=== PATIENT | male | born 1985 | race Caucasian/White ===

== ENCOUNTER 2019-09-07 12:24 | Observation (INO) | payer OTHER ==
[2019-09-07 13:01] LABS: Absolute Lymphocytes (CBC) 1.8 K/uL (0.7-4.9); Basophils % 0.5 % (0-1.3); Lymphocytes % 33.3 % (15.3-44.8); MPV 8.5 fL (7.6-11.3); RBC Red Blood Cell Count 4.48 M/uL (4.33-5.43)
[2019-09-07] MEDS ORDERED: NA CHLORIDE 0.9% 1,000 ML ONE (13:17)
[2019-09-07] MEDS ORDERED: ONDANSETRON 4 MG/2 ML VIAL ONE (13:58)
[2019-09-07] MEDS ORDERED: MORPHINE 2 MG/ML SYR ONE (13:58)
[2019-09-07] MEDS ORDERED: FAMOTIDINE 20 MG/2 ML VIAL IV ONE (13:58)
[2019-09-07 14:08] LABS: Albumin 3.7 g/dL (3.4-5.0); Bilirubin Direct 0.2 mg/dL (0-0.2); Bilirubin Total 0.6 mg/dL (0.2-1.0); Potassium 3.2 mmol/L (3.5-5.1); Protein, Total 7.4 g/dL (6.4-8.2)
--- NOTE | 2019-09-07 14:52 | RAD REPORT ---
EXAM DESCRIPTION: CTAbdomen Pelvis W Contrast - 09/07/2019 2:27 pm CLINICAL HISTORY: Abdominal pain. ABD PAIN COMPARISON: CT ABD PELVIS W CONTRAST dated 03/22/2015 TECHNIQUE: Biphasic CT imaging of the abdomen and pelvis was performed with 100 ml non-ionic IV cont rast. All CT scans are performed using dose optimization technique as appropriate and may include automated exposure control or mA/KV adjustment according to patient size. FINDINGS: The lung bases are clear. The liver, spleen, pancreas, adrenal glands and kidneys are within normal limits. No bowel obstruction, free air, free fluid or abscess. Small fat containing umbilical hernia. Appende ctomy. Mild mesenteric edema is seen with small lymph nodes present. No evidence of significant lymph adenopathy. No suspicious bony findings. IMPRESSION: Mild mesenteric adenitis is possible.
--- NOTE | 2019-09-07 15:17 | EDPHYS ---
Physician Documentation [facility] Name: Aníbal Doyle Age: 33 yrs Sex: Male : 1985 Arrival Date: 09/07/2019 Time: 12:27 Bed 24 Private MD: ED Physician Lorne Redman HPI: 09/07 13:54 This 33 yrs old Male presents to ER via Ambulatory with complaints of leigha Abdominal Pain, Vomiting/Diarrhea. 13:54 The patient presents to the emergency department with nausea, vomiting, diarrhea, leigha abdominal pain, of the right upper quadrant. Onset: The symptoms/episode began/occurred 2 day(s) ago. Possible causes: unknown. The symptoms are aggravated by nothing. The symptoms are alleviated by nothing. Associated signs and symptoms: The patient has no apparent associated signs or symptoms. Severity of symptoms: At their worst the symptoms were mild moderate in the emergency department the symptoms are unchanged. The patient has not experienced similar symptoms in the past. 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 - Social history:: Smoking status: Patient/guardian denies using tobacco. - Ebola Screening: : Patient denies travel to an Ebola-affected area in the 21 days before illness onset. - Family history:: not pertinent. ROS: 13:54 Constitutional: Negative for fever, chills, and weight loss, Eyes: Negative for injury, leigha pain, redness, and discharge, ENT: Negative for injury, pain, and discharge, Neck: Negative for injury, pain, and swelling, Cardiovascular: Negative for chest pain, palpitations, and edema, Respiratory: Negative for shortness of breath, cough, wheezing, and pleuritic chest pain, Back: Negative for injury and pain, : Negative for injury, bleeding, discharge, and swelling, MS/Extremity: Negative for injury and deformity, Skin: Negative for injury, rash, and discoloration, Neuro: Negative for headache, weakness, numbness, tingling, and seizure. 13:54 Abdomen/GI: Positive for abdominal pain, nausea and vomiting, diarrhea, abdominal cramps, abdominal distension, of the right upper quadrant. Exam: 13:54 Constitutional: This is a well developed, well nourished patient who is awake, alert, leigha and in no acute distress. Head/Face: Normocephalic, atraumatic. Eyes: Pupils equal round and reactive to light, extra-ocular motions intact. Lids and lashes normal. Conjunctiva and sclera are non-icteric and not injected. Cornea within normal limits. Periorbital areas with no swelling, redness, or edema. ENT: Nares patent. No nasal discharge, no septal abnormalities noted. Tympanic membranes are normal and external auditory canals are clear. Oropharynx with no redness, swelling, or masses, exudates, or evidence of obstruction, uvula midline. Mucous membranes moist. Neck: Trachea midline, no thyromegaly or masses palpated, and no cervical lymphadenopathy. Supple, full range of motion without nuchal rigidity, or vertebral point tenderness. No Meningismus. Chest/axilla: Normal chest wall appearance and motion. Nontender with no deformity. No lesions are appreciated. Cardiovascular: Regular rate and rhythm with a normal S1 and S2. No gallops, murmurs, or rubs. Normal PMI, no JVD. No pulse deficits. Respiratory: Lungs have equal breath sounds bilaterally, clear to auscultation and percussion. No rales, rhonchi or wheezes noted. No increased work of breathing, no retractions or nasal flaring. Back: No spinal tenderness. No costovertebral tenderness. Full range of motion. Male : Normal genitalia with no discharge or lesions. Skin: Warm, dry with normal turgor. Normal color with no rashes, no lesions, and no evidence of cellulitis. MS/ Extremity: Pulses equal, no cyanosis. Neurovascular intact. Full, normal range of motion. Neuro: Awake and alert, GCS 15, oriented to person, place, time, and situation. Cranial nerves II-XII grossly intact. Motor strength 5/5 in all extremities. Sensory grossly intact. Cerebellar exam normal. Normal gait. Psych: Awake, alert, with orientation to person, place and time. Behavior, mood, and affect are within normal limits. 13:54 Abdomen/GI: Inspection: abdomen appears normal, Bowel sounds: normal, Palpation: mild abdominal tenderness, moderate abdominal tenderness, in the right upper quadrant and right lower quadrant. Vital Signs: 12:39 BP 131 / 99; Pulse 75; Resp 16; Temp 97.3; Pulse Ox 98% on R/A; Weight 90.72 kg (R); aj1 Height 6 ft. 1 in. (185.42 cm) (R); Pain 8/10; 13:41 BP 108 / 73; Pulse 63; Resp 16; Pulse Ox 99% on R/A; aj1 14:30 BP 117 / 75; Pulse 50; Resp 16; Pulse Ox 100% on R/A; aj1 15:30 BP 121 / 81; Pulse 45; Resp 20 S; Pulse Ox 99% on R/A; aj1 16:30 BP 109 / 77; Pulse 40; Resp 16; Pulse Ox 98% on R/A; aj1 17:30 BP 104 / 75; Pulse 45; Resp 18; Pulse Ox 99% on R/A; aj1 18:30 BP 110 / 86; Pulse 43; Resp 18; Pulse Ox 97% on R/A; aj1 19:10 BP 98 / 66; Pulse 41; Resp 14; Temp 98.6(O); Pulse Ox 99% on R/A; Pain 6/10; ch 12:39 Body Mass Index 26.39 (90.72 kg, 185.42 cm) aj1 MDM: 12:37 Patient medically screened. [facility] 13:58 Data reviewed: vital signs, nurses notes, lab test result(s), EKG, radiologic studies, leigha doppler, plain films. 09/07 12:35 Order name: Basic Metabolic Panel; Complete Time: 15:09 [facility] 09/07 12:35 Order name: CBC with Diff; Complete Time: 13:52 [facility] 09/07 12:35 Order name: Creatinine for Radiology; Complete Time: 13:52 [facility] 09/07 12:35 Order name: Hepatic Function; Complete Time: 15:09 [facility] 09/07 12:35 Order name: Lipase; Complete Time: 15:09 [facility] 09/07 12:35 Order name: Urine Culture [facility] 09/07 12:37 Order name: Stool Culture [facility] 09/07 12:37 Order name: Fecal Leukocyte Stain [facility] 09/07 13:54 Order name: US Abdomen Limited; Complete Time: 15:54 [facility] 09/07 13:56 Order name: Urine Dipstick--Ancillary (enter results); Complete Time: 15:54 09/07 16:48 Order name: Magnesium [facility] 09/07 16:48 Order name: NT PRO-BNP [facility] 09/07 16:48 Order name: PT-INR [facility] 09/07 16:48 Order name: Troponin (emerg Dept Use Only) [facility] 09/07 12:35 Order name: IV Saline Lock; Complete Time: 12:44 [facility] 09/07 12:35 Order name: Labs collected and sent; Complete Time: 12:44 [facility] 09/07 12:35 Order name: Urine Dipstick-Ancillary (obtain specimen); Complete Time: 13:27 [facility] 09/07 13:54 Order name: CT Abd/Pelvis - IV Contrast Only; Complete Time: 15:09 [facility] 09/07 15:20 Order name: Hepatobiliary System W/ Ph [facility] 09/07 16:05 Order name: EKG Electrocardiogram; Complete Time: 16:08 [facility] 09/07 16:48 Order name: XRAY Chest (1 view) [facility] 09/07 16:48 Order name: Cardiac monitoring; Complete Time: 16:48 [facility] 09/07 16:48 Order name: EKG - Nurse/Tech; Complete Time: 16:49 [facility] 09/07 16:48 Order name: O2 Per Protocol; Complete Time: 16:49 [facility] 09/07 16:48 Order name: O2 Sat Monitoring; Complete Time: 16:49 [facility] Administered Medications: 13:28 Drug: NS 0.9% 1000 ml Route: IV; Rate: 1 bolus; Site: right antecubital; aj1 14:02 Drug: morphine 2 mg {Note: RASS score 0, patient is alert .} Route: IVP; Site: right aj1 antecubital; 14:02 Drug: Zofran 4 mg Route: IVP; Site: right antecubital; aj1 14:02 Drug: Pepcid 20 mg Route: IVP; Site: right antecubital; aj1 19:00 Follow up: Response: No adverse reaction 15:43 Drug: NS 0.9% with KCl 20 mEq/L 1000 ml Route: IV; Rate: 125 ml/hr; Site: right aj1 antecubital; 21:00 Follow up: IV Status: Infusion continued upon admission; IV Intake: 300ml ch Disposition: 09/07/19 15:16 Hospitalization ordered by Nik You for Inpatient Admission. Preliminary diagnosis are Abdominal tenderness, Vomiting, Hypokalemia, Bradycardia, unspecified. - Bed requested for Telemetry/MedSurg (Inpatient). - Status is Inpatient Admission. - Condition is Fair. - Problem is new. - Symptoms have improved. UTI on Admission? No Signatures: Dispatcher [employer] EDMS Josephine Jackson Kandice Trotter RN RN ch Johnson, Angela, RN RN ajLorne Chambers MD MD cha Corrections: (The following items were deleted from the chart) 15:20 15:16 Hospitalization Ordered by Nik Doan for Inpatient Admission. Preliminary [facility] diagnosis is Abdominal tenderness; Vomiting. Bed requested for Telemetry/MedSurg (Inpatient). Status is Inpatient Admission. Condition is Fair. Problem is new. Symptoms have improved. UTI on Admission? No. [facility] 15:57 15:20 09/07/2019 15:16 [facility] leigha Ad[facility]. Preliminary diagnosis is Abdominal tenderness; Vomiting; Hypokalemia. Bed requested for Telemetry/MedSurg (Inpatient). Status is Inpatient Admission. Condition is Fair. Problem is new. Symptoms have improved. UTI on Admission? No. [facility] 18:29 15:57 09/07/2019 15:16 Hospitalization Ordered by [facility] for Inpatient bd Admission. Preliminary diagnosis is Abdominal tenderness; Vomiting; Hypokalemia; Bradycardia, unspecified. Bed requested for Telemetry/MedSurg (Inpatient). Status is Inpatient Admission. Condition is Fair. Problem is new. Symptoms have improved. UTI on Admission? No. [facility] 20:17 18:29 09/07/2019 15:16 Hospitalization Or[facility] by [facility] for [facility]patient ch Admission. Preliminary diagnosis is Abdominal tenderness; Vomiting; Hypokalemia; Bradycardia, unspecified. Bed requested for Telemetry/MedSurg (Inpatient). Status is Inpatient Admission. Condition is Fair. Problem is new. Symptoms have improved. UTI on Admission? No.
--- NOTE | 2019-09-07 15:17 | ER ---
Nurse's Notes [facility] Name: Aníbal Doyle Age: 33 yrs Sex: Male : 1985 Arrival Date: 09/07/2019 Time: 12:27 Bed 24 Private MD: Diagnosis: Abdominal tenderness;Vomiting;Hypokalemia;Bradycardia, unspecified Presentation: 09/07 12:38 Presenting complaint: Patient states: Right sided abdominal pain, N/V/D, and low grade aj1 fever. Transition of care: patient was not received from another setting of care. Onset of symptoms was September 07, 2019. Risk Assessment: Do you want to hurt yourself or someone else? Patient reports no desire to harm self or others. Initial Sepsis Screen: Does the patient meet any 2 criteria? No. Patient's initial sepsis screen is negative. Does the patient have a suspected source of infection? Yes: Acute abdominal pain. Care prior to arrival: None. 12:38 Method Of Arrival: Ambulatory aj 12:38 Acuity: MINDY 3 aj1 Triage Assessment: 12:39 General: Appears in no apparent distress. uncomfortable, Behavior is calm, cooperative, aj1 appropriate for age. Pain: Complains of pain in umbilical area and right lower quadrant. GI: Reports lower abdominal pain, diarrhea, nausea, vomiting. 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 - Social history:: Smoking status: Patient/guardian denies using tobacco. - Ebola Screening: : Patient denies travel to an Ebola-affected area in the 21 days before illness onset. - Family history:: not pertinent. Screenin:41 Abuse screen: Denies threats or abuse. Denies injuries from another. Nutritional aj1 screening: No deficits noted. Tuberculosis screening: No symptoms or risk factors identified. 19:10 Fall Risk None identified. ch Assessment: 12:41 General: Appears in no apparent distress. uncomfortable, Behavior is calm, cooperative, aj1 appropriate for age. Pain: Complains of pain in right lower quadrant and umbilical area Pain radiates to back Pain currently is 8 out of 10 on a pain scale. Neuro: Level of Consciousness is awake, alert, obeys commands, Oriented to person, place, time, situation. Cardiovascular: Patient's skin is warm and dry. Respiratory: Airway is patent Respiratory effort is even, unlabored, Respiratory pattern is regular, symmetrical. GI: Abdomen is round non-distended, Bowel sounds present X 4 quads. Abd is soft and non tender X 4 quads. Reports lower abdominal pain, diarrhea, nausea, vomiting. : No signs and/or symptoms were reported regarding the genitourinary system. EENT: No signs and/or symptoms were reported regarding the EENT system. Derm: No signs and/or symptoms reported regarding the dermatologic system. Skin is pink, warm \T\ dry. normal. Musculoskeletal: No signs and/or symptoms reported regarding the musculoskeletal system. Circulation, motion, and sensation intact. 13:37 Reassessment: Patient appears in no apparent distress at this time. No changes from aj1 previously documented assessment. Patient and/or family updated on plan of care and expected duration. Pain level reassessed. Patient is alert, oriented x 3, equal unlabored respirations, skin warm/dry/pink. 14:30 Reassessment: Patient and/or family updated on plan of care and expected duration. Pain aj1 level reassessed. General: Appears in no apparent distress. comfortable, Behavior is calm, cooperative, appropriate for age. Neuro: Level of Consciousness is awake, alert, obeys commands, Oriented to person, place, time, situation. Cardiovascular: Patient's skin is warm and dry. Respiratory: Airway is patent Respiratory effort is even, unlabored, Respiratory pattern is regular, symmetrical. Derm: Skin is pink, warm \T\ dry. normal. Musculoskeletal: Circulation, motion, and sensation intact. 15:39 Reassessment: Patient's heart rate is sustained in the 40's at this time. Notified Dr. oneida Redman. Patient states that he is unsure what his normal resting heart rate is. 15:40 Reassessment: Patient and/or family updated on plan of care and expected duration. Pain aj1 level reassessed. General: Appears in no apparent distress. comfortable, Behavior is calm, cooperative, appropriate for age. Neuro: Level of Consciousness is awake, alert, obeys commands, Oriented to person, place, time, situation. Cardiovascular: Patient's skin is warm and dry. Rhythm is sinus bradycardia. Respiratory: Airway is patent Respiratory effort is even, unlabored, Respiratory pattern is regular, symmetrical. 16:30 Reassessment: Patient appears in no apparent distress at this time. No changes from aj1 previously documented assessment. Patient and/or family updated on plan of care and expected duration. Pain level reassessed. Patient is alert, oriented x 3, equal unlabored respirations, skin warm/dry/pink. 17:30 Reassessment: Patient appears in no apparent distress at this time. No changes from aj1 previously documented assessment. Patient and/or family updated on plan of care and expected duration. Pain level reassessed. Patient is alert, oriented x 3, equal unlabored respirations, skin warm/dry/pink. 18:30 Reassessment: Patient and/or family updated on plan of care and expected duration. Pain aj1 level reassessed. General: Appears in no apparent distress. comfortable, Behavior is calm, cooperative, appropriate for age. Neuro: Level of Consciousness is awake, alert, obeys commands, Oriented to person, place, time, situation. Cardiovascular: Patient's skin is warm and dry. Respiratory: Airway is patent Respiratory effort is even, unlabored, Respiratory pattern is regular, symmetrical. GI: Abdomen is round non-distended. Derm: Skin is pale. Musculoskeletal: No signs and/or symptoms reported regarding the musculoskeletal system. Circulation, motion, and sensation intact. 19:10 Reassessment: Patient appears in no apparent distress at this time. Patient and/or ch family updated on plan of care and expected duration. Pain level reassessed. Patient is alert, oriented x 3, equal unlabored respirations, skin warm/dry/pink. Neuro: No deficits noted. Respiratory: No deficits noted. Breath sounds are clear bilaterally. GI: Abdomen is round non-distended, Bowel sounds present X 4 quads. Abd is soft X 4 quads Abdomen is tender to palpation in right upper quadrant, left upper quadrant and right lower quadrant Reports lower abdominal pain, diarrhea, nausea, vomiting. : No signs and/or symptoms were reported regarding the genitourinary system. Derm: Skin is intact, Skin is pink, warm \T\ dry. normal. Vital Signs: 12:39 BP 131 / 99; Pulse 75; Resp 16; Temp 97.3; Pulse Ox 98% on R/A; Weight 90.72 kg (R); aj1 Height 6 ft. 1 in. (185.42 cm) (R); Pain 8/10; 13:41 BP 108 / 73; Pulse 63; Resp 16; Pulse Ox 99% on R/A; aj1 14:30 BP 117 / 75; Pulse 50; Resp 16; Pulse Ox 100% on R/A; aj1 15:30 BP 121 / 81; Pulse 45; Resp 20 S; Pulse Ox 99% on R/A; aj1 16:30 BP 109 / 77; Pulse 40; Resp 16; Pulse Ox 98% on R/A; aj1 17:30 BP 104 / 75; Pulse 45; Resp 18; Pulse Ox 99% on R/A; aj1 18:30 BP 110 / 86; Pulse 43; Resp 18; Pulse Ox 97% on R/A; aj1 19:10 BP 98 / 66; Pulse 41; Resp 14; Temp 98.6(O); Pulse Ox 99% on R/A; Pain 6/10; ch 12:39 Body Mass Index 26.39 (90.72 kg, 185.42 cm) aj1 ED Course: 12:27 Patient arrived in ED. mr 12:35 Lorne Redman MD is Attending Physician. leigha 12:38 Sheyla Rodriguez, RN is Primary Nurse. aj1 12:39 Triage completed. aj1 12:39 Arm band placed on. aj1 12:41 Patient has correct armband on for positive identification. Bed in low position. Call aj1 light in reach. 12:41 No provider procedures requiring assistance completed. aj1 12:44 Initial lab(s) drawn, by fl, sent to lab. Inserted saline lock: 20 gauge in right ca1 antecubital area, using aseptic technique. Blood collected. 13:27 Urine Culture Sent. jp3 13:28 Urine collected: clean catch specimen, clear, roldan colored. jp3 14:28 CT Abd/Pelvis - IV Contrast Only In Process Unspecified. EDMS 15:05 US Abdomen Limited In Process Unspecified. EDMS 15:13 Nik You is Hospitalizing Provider. leigha 16:00 EKG done, by flight test data acquisition technician. reviewed by Lorne Redman MD. sm3 17:03 XRAY Chest (1 view) In Process Unspecified. EDMS 17:26 Initial lab(s) drawn, by fl, sent to lab. jp3 17:26 Troponin (emerg Dept Use Only) Sent. jp3 17:26 Magnesium Sent. jp3 17:26 NT PRO-BNP Sent. jp3 17:26 PT-INR Sent. jp3 19:10 No apparent distress. Resting quietly. 19:10 quality assurance monitor final on. Pulse ox on. NIBP on. Warm blanket given. 19:10 Patient admitted, IV remains in place. 19:44 Primary Nurse role handed off by Sheyla oRdriguez, MILDRED 19:44 Kandice Trotter, RN is Primary Nurse. Administered Medications: 13:28 Drug: NS 0.9% 1000 ml Route: IV; Rate: 1 bolus; Site: right antecubital; [facility] 14:02 Drug: morphine 2 mg {Note: RASS score 0, patient is alert .} Route: IVP; Site: right [facility] antecubital; 14:02 Drug: Zofran 4 mg Route: IVP; Site: right antecubital; [facility] 14:02 Drug: Pepcid 20 mg Route: IVP; Site: right antecubital; [facility] 19:00 Follow up: Response: No adverse reaction 15:43 Drug: NS 0.9% with KCl 20 mEq/L 1000 ml Route: IV; Rate: 125 ml/hr; Site: right [facility] antecubital; 21:00 Follow up: IV Status: Infusion continued upon admission; IV Intake: 300ml Intake: 21:00 IV: 300ml; Total: 300ml. Outcome: 15:16 Decision to Hospitalize by Provider. [facility] 19:47 Admitted to Med/surg accompanied by nurse, via wheelchair, room 416, with chart, Report called to Leticia 19:47 Condition: stable 19:47 Instructed on the need for admit. 20:17 Patient left the ED. Signatures: Dispatcher [employer] EDMS Kandice Trotter, RN RN Sheyla Peña, MILDRED RN aj1 Lorne Redman MD MD cha Rivera, Tonie mr Ohara, Julissa [email or web address] Junior Haynes jp3 Ary Choe RN RN ca1
--- NOTE | 2019-09-07 15:23 | RAD REPORT ---
EXAM DESCRIPTION: US - Abdomen Exam Limited - 09/07/2019 3:04 pm CLINICAL HISTORY: ABD PAIN COMPARISON: Abdomen Pelvis W Contrast dated 09/07/2019 FINDINGS: No gallstones, sludge or other abnormalities within the gallbladder lumen. There is no wal l thickening or pericholecystic fluid. No common duct stone or biliary tree dilatation identified. IMPRESSION: Normal gallbladder and biliary tree ultrasound.
[2019-09-07] MEDS ORDERED: NS KCL 20MEQ 1,000 ML IV ONE (15:32)
[2019-09-07 15:48] LABS: Urine Blood NEGATIVE (NEG); Urine Glucose NEGATIVE (NEG); Urine Protein NEGATIVE (NEG); Urine Specific Gravity 1.015 (1.005-1.030)
--- NOTE | 2019-09-07 17:08 | EKG ---
Test Date: 2019-09-07 Test Time: 15:48:45 Cigarette Catcher: SILVERIO MEASUREMENT RESULTS: Intervals: Rate: 43 NC: 210 QRSD: 132 QT: 496 QTc: 419 [place]: P: 51 NC: 210 QRS: 104 T: 46 INTERPRETIVE STATEMENTS: Sinus rhythm with 1st degree AV block with blocked premature atrial complexes Rightward axis Nonspecific intraventricular block Cannot rule out Septal infarct, age undetermined Abnormal ECG Compared to ECG 04/21/2015 10:12:46 Atrial premature complex(es) now present First degree AV block now present Right-axis deviation now present Myocardial infarct finding still present Electronically Signed On 09-07-19 17:08:11 CDT by Stevo Rossi
[2019-09-07 17:51] LABS: Protime INR 0.96
--- NOTE | 2019-09-07 17:58 | P.HP ---
Certification for Inpatient Patient admitted to: Observation With expected LOS: <2 Midnights Practitioner: I am a practitioner with admitting privileges, knowledge of patient current condition, hospital course, and medical plan of care. Services: Services provided to patient in accordance with Admission requirements found in Title 42 Section 412.3 of the Code of Federal Regulations Patient History Date of Service: 09/07/19 Reason for admission: Abdominal pain History of Present Illness: 33-year-old gentleman with a history of myotonic dystrophy presented emergency department with a complaint of intermittent abdominal pain that has been present for a few years. He stated the pain was occurring once or twice every week but over the past 4 months has been more frequent. He mentioned he saw Dr. mascorro a few years ago who had his gallbladder checked and was told it was normal. Patient described generalized abdominal pain, worse in the right upper quadrant, no associated nausea or vomiting or diarrhea. He has also been afebrile. In the ED, CT abdomen and pelvis was unremarkable except findings suggestive of mild mesenteric adenitis. There is no gallstones or evidence of acute cholecystitis. Case was discussed with Dr. Sheffield recommended hospitalization for HIDA scan. Patient is placed under observation for further management. Allergies No Known Drug Allergies Allergy (Unverified 03/22/15 14:14) Unknown Home medications list reviewed: Yes (None) - Past Medical/Surgical History Diabetic: No -: Myotonic dystrophy Past Surgical History: Patient denies surgical history - Family History Father -: Cancer (Skin cancer) - Social History Alcohol use: Yes CD- Drugs: No Place of Residence: Home Review of Systems Other: General: No fever, no malaise, no unintentional weight loss. Eyes: No eye discharge, Respiratory: No cough, no shortness of breath. CVS: No chest pain, no palpitation, no lightheadedness. GI: No nausea, no vomit, no constipation, no diarrhea. Genitourinary: No dysuria, no urinary frequency, no incontinence, no hematuria. Musculoskeletal: No joint pains, or joint swelling, no gait instability. Neurology: No headache, no asymmetric, weakness, no problem with swallowing. Except as documented, all other systems reviewed and negative. Physical Examination - Physical Exam General: Alert, In no apparent distress, Oriented x3 HEENT: Normocephalic, PERRLA, Mucous membr. moist/pink Neck: Supple, JVD not distended, No Thyromegaly Respiratory: Clear to auscultation bilaterally, Normal air movement Cardiovascular: No edema, Normal S1 S2, No murmurs, Other (Bradycardic) Gastrointestinal: Normal bowel sounds, Soft and benign, Non-distended, Tenderness (Mild tenderness in the right upper quadrant.) Musculoskeletal: No clubbing, No swelling Integumentary: No rashes, No breakdown Neurological: Normal strength at 5/5 x4 extr, Cranial nerves 3-12 intact, Normal affect Lymphatics: No axilla or inguinal lymphadenopathy - Studies Laboratory Data (last 24 hrs) 09/07/19 12:43: Creatinine 1.16 09/07/19 12:43: WBC 5.3, Hgb 14.3, Hct 41.0, Plt Count 216 09/07/19 12:43: Sodium 146 H, Potassium 3.2 L, BUN 12, Creatinine 1.18, Glucose 103, Total Bilirubin 0.6, AST 81 H, ALT 136 H, Alkaline Phosphatase 118 H, Lipase 140 Imagings Data: CT abdomen and pelvis: The liver, spleen, pancreas, adrenal glands and kidneys are within normal limits. No bowel obstruction, free air, free fluid or abscess. Small fat containing umbilical hernia. Appendectomy. Mild mesenteric edema is seen with small lymph nodes present. No evidence of significant lymphadenopathy. No suspicious bony findings. IMPRESSION: Mild mesenteric adenitis is possible Abdominal ultrasound: Normal gallbladder and biliary tree ultrasound. Assessment and Plan - Problems (Diagnosis) (1) Abdominal pain Current Visit: Yes Status: Acute (2) Elevated LFTs Current Visit: Yes Status: Acute (3) Myotonic dystrophy Current Visit: Yes Status: Acute (4) Bradycardia Current Visit: Yes Status: Acute - Plan Placed under observation IV hydration with normal Saline IV morphine p.r.n. for pain. HIDA scan as recommended by general surgeon Consult to Dr. Sosa. Consult to Dr. Andrew to evaluate. Monitor LFTs. - Advance Directives Does patient have a Living Will: No Does patient have a Durable POA for Healthcare: No
--- NOTE | 2019-09-07 18:04 | RAD REPORT ---
EXAM DESCRIPTION: RAD - Chest Single View - 09/07/2019 5:02 pm CLINICAL HISTORY: Right-sided chest and abdomen pain COMPARISON: March 2015 TECHNIQUE: AP portable chest image was obtained 1659 hours . FINDINGS: Lungs are clear. Heart and vasculature are normal. No measurable pleural effusion and no p neumothorax. No acute bony abnormality seen. No acute aortic findings suspected. IMPRESSION: No acute cardiopulmonary process.
[2019-09-07 18:34] LABS: Magnesium 2.2 mg/dL (1.8-2.4); NT PRO-BNP 67 pg/mL (<125); Troponin (Emerg Dept Use Only) < 0.02 ng/mL (0.0-0.045)
[2019-09-07] MEDS ORDERED: MAGNESIUM HYDROXIDE 8% 30 ML PO PRN (19:10)
[2019-09-07] MEDS ORDERED: ACETAMINOPHEN 500 MG TAB PO PRN (19:10)
[2019-09-07] MEDS ORDERED: ONDANSETRON 4 MG/2 ML VIAL IV PRN (19:10)
[2019-09-07] MEDS: NA CHLORIDE 0.9% 1,000 ML IV SCH (19:10)
[2019-09-07] MEDS: MORPHINE 2 MG/ML SYR IV PRN (19:13)
--- NOTE | 2019-09-07 21:18 | P.CNS ---
Date of Consult: 09/07/19 PC: I was asked to see this patient regards to his abdominal pain. HPC: This is a 33-year-old male, who presents with severe abdominal pain. Located on the right side of his abdomen. States it also radiates to his back, between the shoulders, and up to is right shoulder blade. Patient has had abdominal pain off and on for the last number of years. Says he attacks are becoming more frequent. Associated with nausea. Says his pain is now constant. PMH: Myotonic dystrophy PSHx: Previous appendectomy SOC: No known allergies SYS REVIEW: No cough, wheeze, shortness of breath. States his weight has been stable. However he has trouble swallowing. No urinary complaints. Has some muscle spasticity particularly relaxing i.e. his j2ee consultant etc O/E awake alert comfortable at the moment vital signs are stable HEENT: He is not jaundiced Chest: Air entry is equal bilaterally ABD: Soft nontender no guarding or rebound LOCO: Intact DATA: The CT scan demonstrates possible mesenteric adenitis per report. Ultrasound was negative. IMPRESSION: Abdominal pain PLAN: The patient has been admitted for observation pain control. He has a HIDA scan ordered in the morning. We will wait for the results of this. He does not have an acute surgical abdomen at the moment
[2019-09-07 22:06] VITALS: BMI 28.5
[2019-09-08 06:00] LABS: Albumin 3.4 g/dL (3.4-5.0); Bilirubin Total 0.6 mg/dL (0.2-1.0); Magnesium 2.1 mg/dL (1.8-2.4); Phosphorus 3.5 mg/dL (2.5-4.9); Potassium 4.1 mmol/L (3.5-5.1); Protein, Total 6.4 g/dL (6.4-8.2)
[2019-09-08] MEDS ORDERED: INFLUENZA VACCINE (for 3y+) 0.5 ML DOSE IMVAC ONE (08:00)
--- NOTE | 2019-09-08 08:47 | RAD REPORT ---
EXAM DESCRIPTION: NM - Hepatobiliary System W/ Ph - 09/08/2019 7:43 am CLINICAL HISTORY: abd pain COMPARISON: No comparisons TECHNIQUE: The patient was administered 6.1 mCi Tc99m Choletec. Imaging of the right upper quadrant was performed initially for up to 60 minutes. Gallbladder ejection fraction determination was then performed utilizing synthetic 1.7 mgm CCK over a slow 30 minute infusion. FINDINGS: Normal hepatic uptake and excretion with appropriate clearance of background blood pool ac tivity. Normal visualization of biliary and small bowel activity. Gallbladder visualizes within normal time limits. The calculated ejection fraction is 22% (normal gre ater than 35%). Subjective pain reported by the patient: Pre-procedure - no symptom During or subsequent to synthetic CCK infusion - no symptoms IMPRESSION: Patient cystic duct and patent sphincter of Oddi. No delay in visualization of the gallb ladder, biliary tree, or duodenum. Ejection fraction is 22% (normal greater than 35%). Subjective patient pain assessment as detailed above.
[2019-09-08] MEDS: NA CHLORIDE 0.9% 1,000 ML IV SCH ×2 (09:22→15:10)
--- NOTE | 2019-09-08 15:11 | P.PN ---
Subjective Date of Service: 09/08/19 Chief Complaint: Abdominal pain Subjective: No new changes (Patient report intermittent abdominal pain.) Physical Examination - Vital Signs Temperature: 97.5 F Blood Pressure: 110/62 Pulse: 60 Respirations: 16 Pulse Ox (%): 99 - Physical Exam General: Alert, In no apparent distress, Oriented x3 HEENT: Mucous membr. moist/pink Neck: Supple, No Thyromegaly Respiratory: Clear to auscultation bilaterally, Normal air movement Cardiovascular: No edema, Normal pulses, Regular rate/rhythm, Normal S1 S2, No murmurs Capillary refill: <2 Seconds Gastrointestinal: Normal bowel sounds, Soft and benign, Non-distended, No tenderness Musculoskeletal: No clubbing, No swelling Integumentary: No rashes Neurological: Normal strength at 5/5 x4 extr, Cranial nerves 3-12 intact - Studies Laboratory Data (last 24 hrs) 09/07/19 16:53: PT 11.4, INR 0.96 09/07/19 16:53: Magnesium 2.2 Assessment And Plan - Current Problems (Diagnosis) (1) Abdominal pain Current Visit: Yes Status: Acute (2) Elevated LFTs Current Visit: Yes Status: Acute (3) Myotonic dystrophy Current Visit: Yes Status: Acute (4) Bradycardia Current Visit: Yes Status: Acute - Plan LFT is trending down. Continue IV hydration with normal Saline IV morphine p.r.n. for pain. HIDA scan suggests reduced gallbladder ejection fraction but no acute cholecystitis Patient seen by Dr. Sosa and he is following Consult to Dr. Andrew is pending. Monitor LFTs.
[2019-09-08 21:21] VITALS: O2SAT 95
[2019-09-08] MEDS: MORPHINE 2 MG/ML SYR IV PRN ×2 (22:58)
[2019-09-09] MEDS: NA CHLORIDE 0.9% 1,000 ML IV SCH ×2 (01:10→05:16)
[2019-09-09 04:58] LABS: ALT/SGPT 105 U/L (12-78); AST/SGOT 58 U/L (15-37); Albumin 3.5 g/dL (3.4-5.0); Alkaline Phosphatase 93 U/L (45-117); BUN Blood Urea Nitrogen 10 mg/dL (7-18); Bicarbonate 27 mmol/L (21-32); Bilirubin Total 0.8 mg/dL (0.2-1.0); Glucose Level 69 mg/dL (74-106); Magnesium 1.9 mg/dL (1.8-2.4); Potassium 3.9 mmol/L (3.5-5.1); Protein, Total 6.6 g/dL (6.4-8.2); Sodium Level 146 mmol/L (136-145)
[2019-09-09] MEDS: MORPHINE 2 MG/ML SYR IV PRN ×2 (05:16→09:14)
[2019-09-09] MEDS ORDERED: KCL 20 MEQ/100 mL IVPB 20 MEQ/100 ML BAG IV SCH (07:00)
--- NOTE | 2019-09-09 11:53 | P.DS ---
Admission Date: 09/07/19 Discharge Date: 09/09/19 Disposition: ROUTINE DISCHARGE Discharge Condition: GOOD Reason for Admission: Abdominal pain Consultations: General Surgery-Dr. Sosa - Problems (1) Abdominal pain Current Visit: Yes Status: Acute (2) Elevated LFTs Current Visit: Yes Status: Acute (3) Myotonic dystrophy Current Visit: Yes Status: Acute (4) Bradycardia Current Visit: Yes Status: Acute Brief History of Present Illness: 33-year-old gentleman with a history of myotonic dystrophy presented emergency department with a complaint of intermittent abdominal pain that has been present for a few years. He stated the pain was occurring once or twice every week but over the past 4 months has been more frequent. He mentioned he saw Dr. Andrew a few years ago who had his gallbladder checked and was told it was normal. Patient described generalized abdominal pain, worse in the right upper quadrant, no associated nausea or vomiting or diarrhea. He has also been afebrile. In the ED, CT abdomen and pelvis was unremarkable except findings suggestive of mild mesenteric adenitis. There was no gallstones or evidence of acute cholecystitis. Case was discussed with Dr. Sheffield who recommended hospitalization for HIDA scan. Patient was placed under observation for further management. Hospital Course: Patient treated supportively with IV fluids. Patient was evaluated by general surgery-Dr. Sosa. HIDA scan performed did not suggest acute cholecystitis. He did report some mildly reduced gallbladder ejection fraction. His liver enzymes were midly elevated. This trended down with IV hydration. The patient reports no abdominal pain today. He has tolerated regular diet. He reports occasional diarrhea, no nausea or vomiting. Patient is discharged to follow with Dr. Andrew ulcer outpatient regarding his intractable abdominal pain. He is prescribed Protonix for possible gastritis. Vital Signs/Physical Exam: Temp Pulse Resp BP Pulse Ox 97.4 F 60 18 110/66 95 09/09/19 08:00 09/09/19 08:00 09/09/19 10:29 09/09/19 08:00 09/09/19 10:29 General: Alert, In no apparent distress, Oriented x3 HEENT: Mucous membr. moist/pink Neck: Supple, JVD not distended Respiratory: Clear to auscultation bilaterally, Normal air movement Cardiovascular: No edema, Normal pulses, Regular rate/rhythm, Normal S1 S2, No murmurs Capillary refill: <2 Seconds Gastrointestinal: Normal bowel sounds, Soft and benign, Non-distended, No tenderness Musculoskeletal: No swelling Integumentary: No rashes Laboratory Data at Discharge: WBC 5.3 K/uL (4.3-10.9) 09/07/19 12:43 Hgb 14.3 g/dL (13.6-17.9) 09/07/19 12:43 Hct 41.0 % (39.6-49.0) 09/07/19 12:43 Plt Count 216 K/uL (152-406) 09/07/19 12:43 PT 11.4 SECONDS (9.5-12.5) 09/07/19 16:53 INR 0.96 09/07/19 16:53 Sodium 146 mmol/L (136-145) H 09/09/19 03:43 Potassium 3.9 mmol/L (3.5-5.1) 09/09/19 03:43 BUN 10 mg/dL (7-18) 09/09/19 03:43 Creatinine 0.94 mg/dL (0.55-1.3) 09/09/19 03:43 Glucose 69 mg/dL (74-106) L 09/09/19 03:43 Phosphorus 3.5 mg/dL (2.5-4.9) 09/08/19 05:19 Magnesium 1.9 mg/dL (1.8-2.4) 09/09/19 03:43 Total Bilirubin 0.8 mg/dL (0.2-1.0) 09/09/19 03:43 AST 58 U/L (15-37) H 09/09/19 03:43 ALT 105 U/L (12-78) H 09/09/19 03:43 Alkaline Phosphatase 93 U/L (45-117) 09/09/19 03:43 Lipase 140 U/L (73-393) 09/07/19 12:43 Imagings Data: HIDA scan: Normal hepatic uptake and excretion with appropriate clearance of background blood pool activity. Normal visualization of biliary and small bowel activity. Gallbladder visualizes within normal time limits. The calculated ejection fraction is 22% (normal greater than 35%). Subjective pain reported by the patient: Pre-procedure - no symptom During or subsequent to synthetic CCK infusion - no symptoms IMPRESSION: Patient cystic duct and patent sphincter of Oddi. No delay in visualization of the gallbladder, biliary tree, or duodenum. Ejection fraction is 22% (normal greater than 35%). CT abdomen/pelvis: No bowel obstruction, free air, free fluid or abscess. Small fat containing umbilical hernia. Appendectomy. Mild mesenteric edema is seen with small lymph nodes present. No evidence of significant lymphadenopathy. No suspicious bony findings. IMPRESSION: Mild mesenteric adenitis is possible Home Medications: Pantoprazole Sodium [Protonix] 40 mg PO DAILY 30 Days #30 tablet. 09/09/19 New Medications: Pantoprazole Sodium [Protonix] 40 mg PO DAILY 30 Days #30 tablet. Diet: Regular Activity: Ad mima Followup: Rah Andrew MD [ASSOCIATE-ACTIVE - CAN ADMIT] - 1 Week Time spent managing pt's care (in minutes): 28
[2019-09-09 12:18] VITALS: BP 122/72; TEMP 97.3
--- NOTE | 2019-09-09 13:08 | P.PN ---
Subjective Date of Service: 09/09/19 Chief Complaint: Abdominal pain Patient denies any abdominal pain today. He reports intermittent diarrhea. Physical Examination - Vital Signs Temperature: 97.3 F Blood Pressure: 122/72 Pulse: 57 Respirations: 16 Pulse Ox (%): 98 - Physical Exam General: Alert, In no apparent distress, Oriented x3 HEENT: Mucous membr. moist/pink Neck: JVD not distended Respiratory: Clear to auscultation bilaterally, Normal air movement Cardiovascular: No edema, Normal S1 S2, Other (Bradycardic) Capillary refill: <2 Seconds Gastrointestinal: Normal bowel sounds, Soft and benign, Non-distended, No tenderness Musculoskeletal: No swelling Integumentary: No rashes Neurological: Normal strength at 5/5 x4 extr - Studies Microbiology Data (last 24 hrs): 09/07/19 13:15 Clean Catch Urine Fraser Count - Final <10,000 CFU/ML. 09/07/19 13:15 Clean Catch Urine - Final No growth. Assessment And Plan - Current Problems (Diagnosis) (1) Abdominal pain Current Visit: Yes Status: Acute (2) Elevated LFTs Current Visit: Yes Status: Acute (3) Myotonic dystrophy Current Visit: Yes Status: Acute (4) Bradycardia Current Visit: Yes Status: Acute - Plan LFT is trending down. Continue IV hydration with normal Saline IV morphine p.r.n. for pain. HIDA scan suggests reduced gallbladder ejection fraction but no acute cholecystitis Patient seen by Dr. Sosa and he is following. Seen by Dr. Andrew recommend laparoscopic cholecystectomy. Dr. Sosa informed. Patient is planned for cholecystectomy tomorrow. Monitor LFTs.
--- NOTE | 2019-09-09 15:38 | P.PN ---
Date of Service: 09/09/19 S: Patient feels somewhat better today, no specific pain O: Clinically patient looks improved today. Pain is less than yesterday. Lab work is also improved. A: Surgically stable P: The disease this patient to the operating room for laparoscopic cholecystectomy with cholangiogram. This patient had had recurrent bouts of right upper quadrant abdominal pain with attacks of acute cholecystitis necessitating admission to the hospital and IV antibiotics. At the current time his white cell count is coming down, his lipase is normalizing. I feel this is the optimal time to do this as we could see his nutritional status is starting to decline. The risks of this procedure have been explained to the patient and to his daughter. They are well aware of the risks. The possibility of bleeding, infection, injury to bile ducts blood vessels and intestines were explained. The possible need for an open and/or further surgeries and procedures including ERCP were explained. stroke bleeding were also emphasize. They understand and want to proceed..
--- NOTE | 2019-09-09 15:41 | P.PN ---
Date of Service: 09/09/19 S: Patient feels better today. Having some discomfort but not as bad as it had been over the last few days. O: Abdomen is soft, minimal discomfort HIDA scan is positive A: Patient has a positive HIDA scan down a his symptoms and clinical exam support cholecystitis with biliary colic. P: Patient was evaluated by Anesthesia. He has muscular dystrophy. It is not emergent that he have his gallbladder removed at this time so we are going to discharge him. He will have a workup on Friday and Friday with cardiology and pulmonary. This will allow us to assess his pulmonary function. Is more than likely with his underlying medical problems of muscular dystrophy that he will require up intubation in the ICU for least 24 hr. This is been explained to the patient. We will discharge him at this time and his outpatient appointments have been sad. He will see me on Friday we will schedule his procedure at the earliest possible date. The patient understands this and is happy with this plan.
== END 2019-09-09 16:33 | disposition home or self-care (01) ==
LOC: ER 12:24 → ERHOLD 18:03 → 4TH 19:44
PROVIDERS: ADMIT Internal Medicine; ATTEND Internal Medicine
DX: R10.9 Unspecified abdominal pain (principal); R79.89 Other specified abnormal findings of blood chemistry; G71.11 Myotonic muscular dystrophy; R00.1 Bradycardia, unspecified; Z23 Encounter for immunization
CPT/HCPCS: 96361; 93005; 87045; 85025; 87086; 80048; 36415 ×2; 83735 ×3; 89055; 84100; 85610; 80076; 87046; 81003; 84484; 83690; 80053 ×2; 83880; 74177; 71045; 90471; 76705; 94760 ×3; 78227; 96375; 96374; 99285; Q9967; Q2035; J2270 ×6; J7030 ×4; J2405; J2805; A9537; G0378 ×4; 87088

== ENCOUNTER 2019-09-17 06:51 | Day surgery (SDC) | payer OTHER ==
[2019-09-17] MEDS ORDERED: CEFOXITIN/SWI 1gm 0 GM/0 ML SYR ONE (06:55)
[2019-09-17] MEDS ORDERED: Ringers Lactate 1,000 ML IV ONE (06:55)
[2019-09-17] MEDS ORDERED: CEFOXITIN/SWI 1gm 1 GM/10 ML SYR ONE (07:23)
[2019-09-17] MEDS ORDERED: PROPOFOL 200 MG/20 ML VIAL IV ONE (07:50)
[2019-09-17] MEDS ORDERED: MIDAZOLAM HCL 2 MG/2 ML INJ ONE (07:51)
[2019-09-17] MEDS ORDERED: LIDOCAINE 2% MPF 5 ML VIAL ONE (07:51)
[2019-09-17] MEDS ORDERED: FENTANYL CITR 250 MCG/5 ML ONE (07:51)
[2019-09-17] MEDS ORDERED: CISATRACURIUM INJECTION 2 MG/ML (10 ML Vial) IV ONE (07:58)
--- NOTE | 2019-09-17 08:22 | P.HP ---
Date of Service: 09/17/19 PC: This patient presents for elective laparoscopic cholecystectomy with intraoperative cholangiogram. HPC: Patient presented about a week ago to the hospital with severe right upper quadrant abdominal pain. He after 24 hr his pain defervesced. He also had a HIDA scan which was positive. He has underlying history of muscular dystrophy. We worried to schedule him for a lap choly at that time however anesthesia had concerns about his heart and respiratory status. Was discharged and had outpatient workup. This revealed no underlying compromise. He presents back today for his elective procedure. PMH: Muscular dystrophy PSHx: Previous appendectomy SOC: No known allergies SYS REVIEW: No cough, wheeze, shortness of breath. No chest pain or palpitations. No urinary complaints O/E awake alert stable HEENT: Not jaundice Chest: Air movement equal bilaterally ABD: Soft nontender today LOCO: Intact DATA: Has a positive HIDA scan, his labs were within normal limits during his last hospital stay IMPRESSION: Chronic cholecystitis with biliary colic PLAN: I will take him to the operating room for laparoscopic possible open cholecystectomy with intraoperative cholangiogram. The risks of this procedure have been discussed. The possibility of bleeding, infection, injury to bile ducts blood vessels intestines has been described. The possible need for an open and/or further surgeries and procedures was discussed. He understands and wants us to proceed.
[2019-09-17] MEDS ORDERED: NS 0.9% VIAL 20 ML ONE (08:29)
[2019-09-17] MEDS ORDERED: ONDANSETRON 4 MG/2 ML VIAL ONE (08:29)
[2019-09-17] MEDS ORDERED: Phenylephrine HCl 10 MG/ML 1 ML VIAL ONE (08:29)
[2019-09-17] MEDS ORDERED: EPHEDRINE SULF 50 MG/ML VIAL ONE (08:29)
[2019-09-17] MEDS ORDERED: dexAMETHasone 4 MG/ML VIAL ONE (08:30)
--- NOTE | 2019-09-17 09:34 | P.OP ---
Preoperative diagnosis: Chronic cholecystitis Postoperative diagnosis: The same Primary procedure: Laparoscopic cholecystectomy Secondary procedure: Cholangiogram Anesthesia: General Estimated blood loss: Less than 10 cc Specimen: 1 gallbladder and contents Operative Technique: The patient was brought to the operating room placed supine on the table. After the induction of adequate general endotracheal anesthesia, the area of the abdomen is prepped with a DuraPrep solution, and draped in the usual aseptic manner. A subumbilical incision was made. This brought down through the skin and subcutaneous tissue. The Visiport was used to enter the peritoneal cavity and created pneumoperitoneum to approximately 12 mm of mercury. Under direct vision a 5 mm trocar was placed in the upper midline, and 2 other 5 mm trocars on the right lateral side. The patient's head was then elevated and rolled towards the partition assembly machine operator's side. We could see a chronically inflamed gallbladder with serosal adhesions. These adhesions were gently taken down using blunt sharp dissection. We were finally able to expose Fabienne's pouch.. A grasper was placed on the fundus of the gallbladder. Another 1 was placed down by Fabienne's pouch. Applying lateral traction we were able to dissect and expose the cystic duct and artery. The artery was dealt with 1st. It was clipped and divided in the usual manner. A clip was then placed between the gallbladder and the cystic duct. An opening was made into the cystic duct. We attempted then to pass the cholangiocath into the cystic duct. There were lot of valves in the cystic duct. The cholangiogram demonstrated however good flow contrast into the duodenum. No filling defects were noted. The catheter was removed. Clips were now placed on the distal portion of the cystic duct. The cystic duct was then divided. The gallbladder was now dissected free from the liver bed, placed into an Endo-Catch, and brought out through the umbilical trocar site. The gallbladder fossa was inspected to ensure adequate hemostasis. It was irrigated with a saline solution and the irrigant aspirated from the peritoneal cavity. 0.25% Marcaine was aerosolized into the right upper quadrant and the gallbladder fossa. The umbilical trocar site was now approximated with an Endo Close and an absorbable sutures. The pneumoperitoneum was then collapsed, the suture tied, and jaylan applied to the skin. A further 0.25% Marcaine was injected around are incision sites. At the end of the procedure the patient was in a stable condition when sent to the recovery room. Needle sponge instrument count were correct. 1 specimen was sent for histopathology. Complications: None Transferred to: Recovery Room Condition: Good
[2019-09-17] MEDS ORDERED: ONDANSETRON 4 MG/2 ML VIAL IV PRN (09:36)
[2019-09-17] MEDS: FENTANYL CITR 100 MCG/2 ML ONE ×4 (09:57→10:47)
[2019-09-17] MEDS ORDERED: PROMETHAZINE 25 MG/ML VIAL ONE (10:41)
[2019-09-17 12:10] VITALS: BMI 28.8
[2019-09-17] MEDS: MORPHINE 4 MG/ML SYR IV PRN ×3 (12:17→21:30)
[2019-09-17] MEDS: HYDROCODONE/APAP 7.5/325 MG TAB PO PRN ×2 (14:08→18:35)
--- NOTE | 2019-09-17 15:02 | RAD REPORT ---
EXAM DESCRIPTION: RADCholangiogram Oper-Xray Or09/17/2019 2:54 pm CLINICAL HISTORY: Abdominal pain FINDINGS: The examination was performed by Dr. Sosa. The cystic duct was cannulated and contrast administered. Contrast flowed into the duodenum. The biliary tree is normal caliber without a filling defect seen. Two fluoroscopic spot images obtained. Fluoroscopy time 0 minutes
[2019-09-17 20:52] VITALS: O2SAT 92
[2019-09-18] MEDS: HYDROCODONE/APAP 7.5/325 MG TAB PO PRN ×4 (00:25→13:09)
[2019-09-18 12:31] VITALS: BP 124/77; TEMP 98.1
== END 2019-09-18 14:30 | disposition home or self-care (01) ==
LOC: OR 06:51 → 2ND 09:36 → OR 09-18 14:30
PROVIDERS: ATTEND Surgery
PROC: BF00YZZ Plain Radiography of Bile Ducts using Other Contrast (ICD-10-PCS; 2019-09-17)
PROC: 0FT44ZZ Resection of Gallbladder, Percutaneous Endoscopic Approach (ICD-10-PCS; principal; 2019-09-17 08:00)
DX: K81.1 Chronic cholecystitis (principal); G71.11 Myotonic muscular dystrophy
CPT/HCPCS: 88304; 74300; 47563; J2704; J2550; J2370; J2250; J3010 ×2; J7120; J2405

== ENCOUNTER 2019-11-02 03:45 | Emergency (ER) | payer OTHER ==
[2019-11-02 04:27] LABS: Basophils % 0.6 % (0-1.3); Hematocrit 42.9 % (39.6-49.0); Lymphocytes % 43.6 % (15.3-44.8); RBC Red Blood Cell Count 4.68 M/uL (4.33-5.43)
[2019-11-02 05:04] LABS: Bilirubin Direct 0.3 mg/dL (0-0.2); Bilirubin Total 0.8 mg/dL (0.2-1.0); Potassium 3.6 mmol/L (3.5-5.1); Protein, Total 7.9 g/dL (6.4-8.2)
[2019-11-02] MEDS ORDERED: ONDANSETRON 4 MG/2 ML VIAL ONE (05:14)
[2019-11-02] MEDS ORDERED: NA CHLORIDE 0.9% 1,000 ML ONE (05:14)
--- NOTE | 2019-11-02 07:25 | RAD REPORT ---
EXAM DESCRIPTION: CTAbdomen Pelvis W Contrast - 11/02/2019 6:21 am CLINICAL HISTORY: Abdominal pain. ABD PAIN COMPARISON: Abdomen Pelvis W Contrast dated 09/07/2019; CT ABD PELVIS W CONTRAST dated 03/22/2015 TECHNIQUE: Biphasic CT imaging of the abdomen and pelvis was performed with 100 ml non-ionic IV cont rast. All CT scans are performed using dose optimization technique as appropriate and may include automated exposure control or mA/KV adjustment according to patient size. FINDINGS: The lung bases are clear.Cholecystectomy clips. The liver, spleen, pancreas, adrenal glands and kidneys are within normal limits. No bowel obstruction, free air, free fluid or abscess. Small fat containing umbilical hernia. Appende ctomy clips. Mild nonspecific mesenteric edema is unchanged and chronic. No evidence of significant l ymphadenopathy. No suspicious bony findings. IMPRESSION: No acute intra-abdominal or pelvic finding.
--- NOTE | 2019-11-02 07:46 | ER ---
Nurse's Notes [facility] Name: Aníbal Doyle Age: 34 yrs Sex: Male : 1985 Arrival Date: 11/02/2019 Time: 03:47 Bed 16 Private MD: Diagnosis: Vomiting;Unspecified viral hepatitis Presentation: 11/02 04:00 Presenting complaint: Patient states: I woke up around 1 am with severe abdominal pain jb4 in the middle my abdomen. I am having nausea and diarrhea. 04:00 Transition of care: patient was not received from another setting of care. Onset of jb4 symptoms was November 02, 2019. Risk Assessment: Do you want to hurt yourself or someone else? Patient reports no desire to harm self or others. Initial Sepsis Screen: Does the patient meet any 2 criteria? No. Patient's initial sepsis screen is negative. Does the patient have a suspected source of infection? No. Patient's initial sepsis screen is negative. Care prior to arrival: None. 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 - Social history:: Smoking status: Patient uses tobacco products, chewing tobacco, Patient uses alcohol, only on a social basis. - Ebola Screening: : No symptoms or risks identified at this time. Screenin:00 Abuse screen: Denies threats or abuse. Denies injuries from another. Nutritional jl7 screening: No deficits noted. Tuberculosis screening: No symptoms or risk factors identified. Fall Risk IV access (20 points). Assessment: 04:00 General: Appears in no apparent distress. uncomfortable, Behavior is calm, cooperative, jb4 appropriate for age. Pain: Complains of pain in abdomen Pain radiates to low back area Pain currently is 7 out of 10 on a pain scale. Neuro: Level of Consciousness is awake, alert, obeys commands, Oriented to person, place, time, situation. Cardiovascular: Patient's skin is warm and dry. Respiratory: Airway is patent Respiratory effort is even, unlabored, Respiratory pattern is regular, symmetrical. GI: Abdomen is round non-distended, Bowel sounds present X 4 quads. Abd is soft X 4 quads Abd is non tender X 4 quads Abdomen is tender to palpation in umbilical area and suprapubic area. : No signs and/or symptoms were reported regarding the genitourinary system. EENT: No signs and/or symptoms were reported regarding the EENT system. Derm: Skin is intact, Skin is pink, warm \T\ dry. Musculoskeletal: Circulation, motion, and sensation intact. Range of motion: intact in all extremities. 05:00 Reassessment: Patient appears in no apparent distress at this time. Patient and/or jb4 family updated on plan of care and expected duration. Pain level reassessed. Patient is alert, oriented x 3, equal unlabored respirations, skin warm/dry/pink. 06:00 Reassessment: Patient appears in no apparent distress at this time. Patient and/or jb4 family updated on plan of care and expected duration. Pain level reassessed. Patient is alert, oriented x 3, equal unlabored respirations, skin warm/dry/pink. 06:58 Reassessment: Patient appears in no apparent distress at this time. Patient and/or jb4 family updated on plan of care and expected duration. Pain level reassessed. Patient is alert, oriented x 3, equal unlabored respirations, skin warm/dry/pink. Vital Signs: 04:00 BP 152 / 104; Pulse 68; Resp 16; Temp 97.7(O); Pulse Ox 99% on R/A; Weight 98.88 kg 4 (R); Height 6 ft. 1 in. (185.42 cm) (R); Pain 7/10; 05:15 BP 110 / 73; Pulse 58; Resp 16; Pulse Ox 100% on R/A; jb4 05:45 BP 118 / 98; Pulse 55; Resp 16; Pulse Ox 100% on R/A; jb4 07:00 BP 116 / 81; Pulse 55; Resp 16; Pulse Ox 97% on R/A; jb4 08:06 BP 117 / 85; Pulse 56; Resp 16 S; Pulse Ox 97% on R/A; jl7 04:00 Body Mass Index 28.76 (98.88 kg, 185.42 cm) [facility] ED Course: 03:47 Patient arrived in ED. cl3 03:53 Jaylen Wan, RN is Primary Nurse. jb4 03:57 Yeyo Reynoso MD is Attending Physician. tw4 04:00 Arm band placed on right wrist. jb4 04:15 Initial lab(s) drawn, by me, sent to lab. Inserted saline lock: 20 gauge in left jb4 forearm, using aseptic technique. Blood collected. 04:19 Basic Metabolic Panel Sent. jb4 04:19 CBC with Diff Sent. jb4 04:19 Creatinine for Radiology Sent. jb4 04:19 Hepatic Function Sent. jb4 04:19 Lipase Sent. jb4 04:22 Triage completed. jb4 05:04 Notified ED physician of a critical lab result(s). ALT 326, AST 348, Dr Reynoso notified.bb 06:22 CT Abd/Pelvis - IV Contrast Only In Process Unspecified. EDMS 07:00 Patient has correct armband on for positive identification. Bed in low position. Call jl7 light in reach. Side rails up X 1. 07:20 [facility]C [facility] la1 07:45 Rah Andrew MD is Referral Physician. la1 07:45 Tesha Lowe MD is Referral Physician. la1 07:45 Pancho Keene MD is Referral Physician. la1 08:08 No provider procedures requiring assistance completed. IV discontinued, intact, jl7 bleeding controlled, No redness/swelling at site. Pressure dressing applied. Administered Medications: 05:18 Drug: NS 0.9% 1000 ml Route: IV; Rate: 1 bolus; Site: left forearm; jb4 07:30 Follow up: Response: No adverse reaction; IV Status: Completed infusion; IV Intake: jl7 1000ml 05:18 Drug: Zofran 2 mg Route: IVP; Site: left forearm; jb4 07:00 Follow up: Response: No adverse reaction; Nausea is decreased jl7 Intake: 07:30 IV: 1000ml; Total: 1000ml. jl7 Outcome: 07:45 Discharge ordered by . la1 08:08 Discharged to home ambulatory. jl7 08:08 Condition: stable 08:08 Discharge instructions given to patient, Instructed on discharge instructions, follow up and referral plans. medication usage, Demonstrated understanding of instructions, follow-up care, medications, Prescriptions given X 1. 08:09 Patient left the ED. jl7 Signatures: Dispatcher [employer] EDMS Geovanna Keller, RN RN Johnny Hannon, CLAMP JIG ASSEMBLER-C CLAMP JIG ASSEMBLER-Cla1 Jaylen Wan RN RN jb4 Jinny Melton RN RN jl7 Yeyo Reynoso MD MD tw4 Dariana Higgins cl3
--- NOTE | 2019-11-02 07:47 | EDPHYS ---
Physician Documentation [facility] Name: Aníbal Doyle Age: 34 yrs Sex: Male : 1985 Arrival Date: 11/02/2019 Time: 03:47 Bed 16 Private MD: ED Physician Yeyo Reynoso HPI: 11/02 04:49 This 34 yrs old Male presents to ER via Ambulatory with complaints of tw4 Abdominal Pain. 04:51 The patient presents with abdominal pain in the periumbilical area. Onset: The tw4 symptoms/episode began/occurred just prior to arrival. 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 - Social history:: Smoking status: Patient uses tobacco products, chewing tobacco, Patient uses alcohol, only on a social basis. - Ebola Screening: : No symptoms or risks identified at this time. ROS: 07:20 Constitutional: Negative for fever, chills, and weight loss, Eyes: Negative for injury, tw4 pain, redness, and discharge, Cardiovascular: Negative for chest pain, palpitations, and edema, Respiratory: Negative for shortness of breath, cough, wheezing, and pleuritic chest pain. 07:20 Abdomen/GI: Positive for abdominal pain, nausea and vomiting, nausea, vomiting, abdominal cramps, Negative for diarrhea, abdominal distension, anorexia, dysphagia, hematemesis, black/tarry stool, rectal pain, rectal bleeding, bowel incontinence. Exam: 07:20 Constitutional: This is a well developed, well nourished patient who is awake, alert, tw4 and in no acute distress. Head/Face: Normocephalic, atraumatic. Chest/axilla: Normal chest wall appearance and motion. Nontender with no deformity. No lesions are appreciated. Cardiovascular: Regular rate and rhythm with a normal S1 and S2. No gallops, murmurs, or rubs. Normal PMI, no JVD. No pulse deficits. Respiratory: Lungs have equal breath sounds bilaterally, clear to auscultation and percussion. No rales, rhonchi or wheezes noted. No increased work of breathing, no retractions or nasal flaring. 07:20 Back: No spinal tenderness. No costovertebral tenderness. Full range of motion. MS/ Extremity: Pulses equal, no cyanosis. Neurovascular intact. Full, normal range of motion. Neuro: Awake and alert, GCS 15, oriented to person, place, time, and situation. Cranial nerves II-XII grossly intact. Motor strength 5/5 in all extremities. Sensory grossly intact. Cerebellar exam normal. Normal gait. 07:20 Abdomen/GI: Inspection: Bowel sounds: diminished, Palpation: moderate abdominal tenderness, in the right upper quadrant and left upper quadrant. Vital Signs: 04:00 BP 152 / 104; Pulse 68; Resp 16; Temp 97.7(O); Pulse Ox 99% on R/A; Weight 98.88 kg jb4 (R); Height 6 ft. 1 in. (185.42 cm) (R); Pain 7/10; 05:15 BP 110 / 73; Pulse 58; Resp 16; Pulse Ox 100% on R/A; jb4 05:45 BP 118 / 98; Pulse 55; Resp 16; Pulse Ox 100% on R/A; jb4 07:00 BP 116 / 81; Pulse 55; Resp 16; Pulse Ox 97% on R/A; jb4 08:06 BP 117 / 85; Pulse 56; Resp 16 S; Pulse Ox 97% on R/A; jl7 04:00 Body Mass Index 28.76 (98.88 kg, 185.42 cm) jb4 MDM: 03:57 Patient medically screened. tw4 07:20 Data reviewed: vital signs, nurses notes. Data interpreted: Pulse oximetry: tw4 Interpretation: normal. Counseling: I had a detailed discussion with the patient and/or guardian regarding: the historical points, exam findings, and any diagnostic results supporting the discharge/admit diagnosis, radiology results. Special discussion: Based on the patient's Hx, exam, and Dx evaluation, there is no indication for emergent surgery or inpatient Tx. It is understood by the patient/guardian that if the Sx's persist or worsen they need to return immediately for re-evaluation. I discussed with the patient/guardian in detail that at this point there is no indication for admission to the hospital. It is understood, however, that if the symptoms persist or worsen the patient needs to return immediately for re-evaluation. 07:44 ED course: Pt states he is feeling better, repeat abd exam without focal tenderness, pt la1 states the zofran helped with his nausea, instructed to FU with PCP in regards to elevated liver enzymes. Hepatitis panel drawn in ED, pt will FU with hospital over the phone for results. . 11/02 03:58 Order name: Basic Metabolic Panel; Complete Time: 05:11 4 11/02 05:11 Interpretation: Normal except: CL 111; GFR 82. tw11/02 03:58 Order name: CBC with Diff; Complete Time: 05:11 4 11/02 05:11 Interpretation: Within normal limits. 11/02 03:58 Order name: Creatinine for Radiology; Complete Time: 05:11 4 11/02 05:11 Interpretation: Within normal limits: CRE 1.01. 11/02 03:58 Order name: Hepatic Function; Complete Time: 05:11 [facility] 11/02 07:19 Interpretation: Normal except: AST 348; ALT 326; ALK 145; BILID 0.3; GLOB 3.9; A/G 1.0. tw11/02 03:58 Order name: Lipase; Complete Time: 05:11 4 11/02 05:12 Interpretation: Within normal limits: LIP 150. 11/02 07:11 Order name: HEPATITIS EXPOSURE PANEL tw4 11/02 03:58 Order name: IV Saline Lock; Complete Time: 04:19 11/02 03:58 Order name: Labs collected and sent; Complete Time: 04:19 11/02 05:36 Order name: CT Abd/Pelvis - IV Contrast Only; Complete Time: 07:38 4 11/02 07:11 Order name: Hepatitis Panel Administered Medications: 05:18 Drug: NS 0.9% 1000 ml Route: IV; Rate: 1 bolus; Site: left forearm; jb4 07:30 Follow up: Response: No adverse reaction; IV Status: Completed infusion; IV Intake: jl7 1000ml 05:18 Drug: Zofran 2 mg Route: IVP; Site: left forearm; jb4 07:00 Follow up: Response: No adverse reaction; Nausea is decreased jl7 Disposition: 11/03 07:58 Co-signature as Attending Physician, Yeyo Reynoso MD I agree with the assessment and tw4 plan of care. Disposition: 11/02/19 07:45 Discharged to Home. Impression: Vomiting, Unspecified viral hepatitis. - Condition is Stable. - Discharge Instructions: Nausea and Vomiting, Adult, Ymdn-[id number], Hepatitis A, [id number]. - Prescriptions for Zofran 4 mg Oral Tablet - take 1 tablet by ORAL route every 12 hours As needed; 20 tablet. - Medication Reconciliation Form, Thank You Letter form. - Follow up: Private Physician; When: Upon discharge from the Emergency Department; Reason: Recheck today's complaints, Continuance of care. Follow up: Rah Andrew; When: Upon discharge from the Emergency Department; Reason: Recheck today's complaints, Continuance of care. Follow up: Tesha Lowe; When: Upon discharge from the Emergency Department; Reason: Recheck today's complaints, Continuance of care. Follow up: Pancho Keene; When: Upon discharge from the Emergency Department; Reason: Recheck today's complaints, Continuance of care. - Problem is new. - Symptoms have improved. Signatures: Dispatcher [employer] EDMS Johnny Doe, PICTURE BOOKER-C PICTURE BOOKER-Cla1 Jaylen Wan RN RN jb4 Jinny Melton RN RN jl7 Yeyo Reynoso MD MD tw4 Corrections: (The following items were deleted from the chart) 11/02 07:19 05:11 Normal except: AST 348; ALT 326; ALK 145; BILID 0.3. tw4 tw4 08:09 07:45 11/02/2019 07:45 Discharged to Home. Impression: Vomiting; Unspecified viral jl7 hepatitis. Condition is Stable. Discharge Instructions: Nausea and Vomiting, Adult, [id number], Hepatitis A, [id number]. Prescriptions for Zofran 4 mg Oral Tablet - take 1 tablet by ORAL route every 12 hours As needed; 20 tablet. and Forms are Medication Reconciliation Form, Thank You Letter, Antibiotic Education, Prescription Opioid Use. Follow up: Private Physician; When: Upon discharge from the Emergency Department; Reason: Recheck today's complaints, Continuance of care. Follow up: Rah Andrew; When: Upon discharge from the Emergency Department; Reason: Recheck today's complaints, Continuance of care. Follow up: Tesha Lowe; When: Upon discharge from the Emergency Department; Reason: Recheck today's complaints, Continuance of care. Follow up: Pancho Keene; When: Upon discharge from the Emergency Department; Reason: Recheck today's complaints, Continuance of care. Problem is new. Symptoms have improved. la1
[2019-11-02 09:21] VITALS: O2SAT 97
[2019-11-02 09:22] VITALS: BP 117/85
[2019-11-02 16:57] VITALS: TEMP 97.7
[2019-11-04 12:47] LABS: HBsAG Nonreactive (Nonreactive)
== END 2019-11-02 08:09 | disposition home or self-care (01) ==
LOC: ER 03:45
DX: B19.9 Unspecified viral hepatitis without hepatic coma (principal); F17.220 Nicotine dependence, chewing tobacco, uncomplicated
CPT/HCPCS: 96361; 85025; 80048; 36415; 80076; 83690; 86705; 87340; 86803; 80074; 74177; 96374; 99284; Q9967; J7030; J2405